=== PATIENT | female | born 1950 | race Asian ===

== ENCOUNTER 2019-05-07 08:00 | Outpatient (CLI) | payer MEDICARE | END 2019-05-07 23:59 | disposition home or self-care (01) | LOC: D.MAMMO 08:00 | PROVIDERS: ATTEND Emergency Medicine | DX: Z12.31 Encounter for screening mammogram for malignant neoplasm of breast (principal) ==

== ENCOUNTER → 2020-11-17 09:48 | Outpatient (CLI) | payer MEDICARE ==
[2020-11-17 10:43] LABS: BASOPHILS 1.8 % (0-2); EOSINOPHILS 2.4 % (0-7); HEMATOCRIT 36.9 % (36.0-48.0); HEMOGLOBIN 12.3 g/dL (12-16); LYMPHOCYTES 32.4 % (15-50); MCH 31.7 pg (26.0-34.0); MCHC 33.4 g/dL (31.0-37.0); MCV 95.1 fL (80.0-100.0); MEAN PLATELET VOLUME 7.3 fL (7.4-10.4); MONOCYTES 9.1 % (2-11); NEUTROPHILS 54.3 % (40-80); PLATELET COUNT 334 10x3/uL (130-400); RBC 3.88 10x6/uL (4.00-5.40); RDW 12.3 % (11.5-14.5); WBC 5.9 10x3/uL (4.8-10.8)
[2020-11-17 11:05] LABS: BILIRUBIN NEGATIVE (NEGATIVE); KETONE NEGATIVE (NEGATIVE); NITRITE NEGATIVE (NEGATIVE); UROBILINOGEN NORMAL mg/dL (< 2)
[2020-11-17 11:20] LABS: ALBUMIN 4.1 g/dL (3.4-5.0); ANION GAP 12.7 mmol/L (8-16); BILIRUBIN - TOTAL 0.4 mg/dL (0.2-1.3); CALCIUM 9.5 mg/dL (8.5-10.1); CHOL - HDL RATIO 2.7 ratio (2.3-4.1); POTASSIUM - SERUM 4.7 mmol/L (3.5-5.1); PROTEIN - SERUM 7.4 g/dL (6.4-8.2); THYROID STIMULATING HORMONE 1.15 uIU/mL (0.36-3.74); URIC ACID 7.2 mg/dL (2.6-7.2)
== END | disposition home or self-care (01) ==
LOC: D.LAB 09:48
PROVIDERS: ATTEND Family Medicine
DX: I10 Essential (primary) hypertension (principal); Z00.00 Encounter for general adult medical examination without abnormal findings; E78.9 Disorder of lipoprotein metabolism, unspecified; M10.9 Gout, unspecified; E11.9 Type 2 diabetes mellitus without complications; M19.90 Unspecified osteoarthritis, unspecified site